=== PATIENT | female | born 1990 | race Two or more races ===

== ENCOUNTER → 2017-01-05 16:44 | Emergency (ER) | payer OTHER ==
[2017-01-05 16:51] VITALS: BP 119/64
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
== END | disposition home or self-care (01) ==
LOC: ED 16:44
DX: S09.90XA Unspecified injury of head, initial encounter (principal); W51.XXXA Accidental striking against or bumped into by another person, initial encounter; Y93.89 Activity, other specified; Y92.9 Unspecified place or not applicable; Y99.8 Other external cause status
CPT/HCPCS: 99281